=== PATIENT | female | born 1945 | race Caucasian/White ===

== ENCOUNTER 2022-04-29 19:31 | Inpatient (IN) | payer MEDICARE, OTHER ==
[~2022-04-29] VITALS: Ht 162.6 cm; Wt 80.3 kg
[2022-04-29 20:58] LABS: BASOPHILS % 0.4 % (0.0-2.0); EOSINOPHILS % 0.8 % (0.0-5.0); HEMATOCRIT. 30.7 % (36.0-48.0); HEMOGLOBIN. 9.7 g/dL (12.0-16.0); LYMPHOCYTES % 32.9 % (20.0-50.0); MEAN CORPUSCULAR VOLUME 73.2 fL (81.0-99.0); MEAN PLATELET VOLUME 8.9 fl (7.4-10.4); NEUTROPHILS % 56.9 % (40.0-76.0); PLATELET 255 x1000/uL (130-400); RED CELL DISTRIBUTION WIDTH 18.3 % (11.6-14.6)
[2022-04-29 21:16] LABS: D-DIMER 11.46 mg/L FEU (<0.50); PROTHROMBIN TIME 11.1 sec (9.6-11.0)
[2022-04-29 21:21] LABS: CHLORIDE 105 mEq/L (98-107)
[2022-04-29] MEDS ORDERED: IOHEXOL-350 100 ML BOTTLE ONE (23:03)
[2022-04-30] VITALS (37 sets, daily range): BP systolic 114–146; BP diastolic 51–107
[2022-04-30] MEDS ORDERED: ALTEPLASE 100MG/VIAL IV ONE (00:15)
[2022-04-30] MEDS ORDERED: SODIUM CHLORIDE 0.9% 250 ML IV ONE (00:30)
[2022-04-30] MEDS ORDERED: ALTEPLASE 100MG/VIAL IV NR (00:45)
[2022-04-30] MEDS ORDERED: IPRATROPIUM/ALBUTEROL 0.5-3(2.5)MG/3ML NEB HHN PRN ×2 (01:45→15:15)
[2022-04-30] MEDS ORDERED: ACETAMINOPHEN 325MG TABLET PO PRN ×2 (01:45)
[2022-04-30] MEDS ORDERED: DIPHENHYDRAMINE 50MG/ML VIAL IV PRN (01:45)
[2022-04-30] MEDS ORDERED: ONDANSETRON HCL 4MG/2ML INJ IV PRN (01:45)
[2022-04-30] MEDS ORDERED: MAGNESIUM/ALUMINUM HYDROXIDE/SIMETHICONE 30ML UDC PO PRN (01:45)
[2022-04-30] MEDS: SODIUM CHLORIDE 0.9% 1,000 ML IV SCH ×2 (03:46→15:58)
[2022-04-30] MEDS: ENOXAPARIN 80MG/0.8ML SYR SUBCUT SCH ×2 (05:26→18:12)
[2022-04-30 05:57] LABS: HEMATOCRIT 30.6 % (36.0-48.0); HEMOGLOBIN 9.4 g/dL (12.0-16.0); MEAN CORPUSCULAR HEMOGLOBIN 22.9 pg (28.0-32.0); MEAN CORPUSCULAR VOLUME 74.3 fL (81.0-99.0); PLATELET 220 x1000/uL (130-400); RED BLOOD CELL COUNT 4.12 mill/uL (4.2-5.4); RED CELL DISTRIBUTION WIDTH 18.6 % (11.6-14.6)
[2022-04-30] MEDS: FAMOTIDINE 20MG TABLET PO SCH (20:48)
[2022-05-01] VITALS (39 sets, daily range): BP systolic 119–152; BP diastolic 44–80
[2022-05-01] MEDS: ENOXAPARIN 80MG/0.8ML SYR SUBCUT SCH (05:44)
[2022-05-01] MEDS: GUAIFENESIN 200MG/10ML SUGAR FREE UDC PO PRN ×2 (07:49→15:43)
[2022-05-01] MEDS: APIXABAN 5 MG TABLET PO SCH (16:54)
[2022-05-01] MEDS: SODIUM CHLORIDE 0.9% 1,000 ML IV SCH (16:56)
[2022-05-01] MEDS: FAMOTIDINE 20MG TABLET PO SCH (21:35)
[2022-05-02] VITALS: BP 137/55
[2022-05-02 04:00] VITALS: BP 145/60
[2022-05-02] MEDS: LEVOTHYROXINE SODIUM 125MCG TABLET PO SCH (06:04)
[2022-05-02] MEDS: OMEPRAZOLE 20MG CAPSULE EXTENDED RELEASE PO SCH (06:04)
[2022-05-02] MEDS: SODIUM CHLORIDE 0.9% 1,000 ML IV SCH ×2 (06:05→20:03)
[2022-05-02] MEDS ORDERED: LEVOTHYROXINE SODIUM 125MCG TABLET PO SCH (06:30)
[2022-05-02 08:00] VITALS: BP 135/66
[2022-05-02] MEDS: APIXABAN 5 MG TABLET PO SCH ×2 (09:16→16:57)
[2022-05-02] MEDS: CALCIUM 1250MG TABLET (500MG ELEMENTAL CALCIUM) PO SCH (09:29)
[2022-05-02 12:00] VITALS: BP 188/62
[2022-05-02] MEDS: CLONIDINE 0.1MG TABLET PO PRN (14:41)
[2022-05-02 15:42] LABS: BASOPHILS % 0.4 % (0.0-2.0); EOSINOPHILS % 1.8 % (0.0-5.0); HEMATOCRIT. 29.9 % (36.0-48.0); HEMOGLOBIN. 9.4 g/dL (12.0-16.0); LYMPHOCYTES % 37.3 % (20.0-50.0); MEAN CORPUSCULAR HEMOGLOBIN 23.3 pg (28.0-32.0); MEAN CORPUSCULAR VOLUME 74.2 fL (81.0-99.0); MEAN PLATELET VOLUME 9.6 fl (7.4-10.4); MONOCYTES % 10.5 % (2.0-8.0); PLATELET 261 x1000/uL (130-400); RED BLOOD CELL COUNT 4.03 mill/uL (4.2-5.4); RED CELL DISTRIBUTION WIDTH 18.4 % (11.6-14.6)
[2022-05-02 16:00] VITALS: BP 132/63
[2022-05-02 16:00] LABS: CHLORIDE 103 mEq/L (98-107)
[2022-05-02] MEDS: GUAIFENESIN 200MG/10ML SUGAR FREE UDC PO PRN (17:02)
[2022-05-02 20:00] VITALS: BP 105/61
[2022-05-02] MEDS: FAMOTIDINE 20MG TABLET PO SCH (20:03)
[2022-05-03] VITALS: BP 130/64
[2022-05-03 04:00] VITALS: BP 136/61
[2022-05-03] MEDS: LEVOTHYROXINE SODIUM 125MCG TABLET PO SCH (05:52)
[2022-05-03] MEDS: OMEPRAZOLE 20MG CAPSULE EXTENDED RELEASE PO SCH (05:52)
[2022-05-03 08:00] VITALS: BP 165/65
[2022-05-03] MEDS: CLONIDINE 0.1MG TABLET PO PRN (08:25)
[2022-05-03] MEDS: CALCIUM 1250MG TABLET (500MG ELEMENTAL CALCIUM) PO SCH (08:25)
[2022-05-03] MEDS: APIXABAN 5 MG TABLET PO SCH (08:25)
[2022-05-03 08:36] LABS: BASOPHILS % 0.3 % (0.0-2.0); EOSINOPHILS % 1.4 % (0.0-5.0); HEMATOCRIT. 29.4 % (36.0-48.0); HEMOGLOBIN. 9.3 g/dL (12.0-16.0); LYMPHOCYTES % 41.2 % (20.0-50.0); MEAN CORPUSCULAR HEMOGLOBIN 23.4 pg (28.0-32.0); MEAN CORPUSCULAR VOLUME 74.1 fL (81.0-99.0); MEAN PLATELET VOLUME 9.5 fl (7.4-10.4); NEUTROPHILS % 47.1 % (40.0-76.0); PLATELET 247 x1000/uL (130-400); RED BLOOD CELL COUNT 3.97 mill/uL (4.2-5.4); RED CELL DISTRIBUTION WIDTH 18.4 % (11.6-14.6)
[2022-05-03 08:53] LABS: CHLORIDE 104 mEq/L (98-107)
[2022-05-03] MEDS: SODIUM CHLORIDE 0.9% 1,000 ML IV SCH (09:56)
[2022-05-03 12:00] VITALS: BP 124/63
[2022-05-03 12:36] VITALS: BP 124/63
[2022-05-08] MEDS ORDERED: APIXABAN 5 MG TABLET PO SCH (17:00)
== END 2022-05-03 14:45 | disposition home or self-care (01) | DRG 280 ==
LOC: ER 19:31 → EDBEDREQTM 23:04 → EDBEDREQ 23:04 → ENRESERV 23:31 → CANRESERV 23:31 → ENRESERV 04-30 02:41 → MICUSO 04-30 02:48 → 3WST 05-01 20:00 → MICUSO 05-01 20:04 → 7EST 05-01 20:17
PROVIDERS: ADMIT Internal Medicine; ATTEND Internal Medicine
DX: I21.4 Non-ST elevation (NSTEMI) myocardial infarction (principal); I26.99 Other pulmonary embolism without acute cor pulmonale; J96.01 Acute respiratory failure with hypoxia; E44.1 Mild protein-calorie malnutrition; D68.59 Other primary thrombophilia; I82.401 Acute embolism and thrombosis of unspecified deep veins of right lower extremity; M19.90 Unspecified osteoarthritis, unspecified site; J45.909 Unspecified asthma, uncomplicated; D50.9 Iron deficiency anemia, unspecified; I11.9 Hypertensive heart disease without heart failure; Z68.30 Body mass index [BMI] 30.0-30.9, adult; Z88.0 Allergy status to penicillin; Z79.01 Long term (current) use of anticoagulants; Z92.3 Personal history of irradiation; Z85.72 Personal history of non-Hodgkin lymphomas; Z92.21 Personal history of antineoplastic chemotherapy
CPT/HCPCS: 36415; 71045; 71275; 80048; 80053; 83880; 84484; 85025; 85027; 85379; 93005; 93306; 93970; 99285; J1650; J2997; J7050; Q9967